=== PATIENT | female | born 1960 | race Caucasian/White ===

== ENCOUNTER 2019-08-06 10:32 | Outpatient (CLI) | payer BC, SELFPAY ==
--- NOTE | ~2019-08-06 | XR_ITS ---
EXAMINATION: XR ankle LT min 3V, XR foot LT min 3V, XR heel LT min 2V EXAM DATE: 08/06/2019 11:01 INDICATION: No known recent injury provided at this time. Pain of the left ankle, heel, foot. TECHNIQUE: Left foot dorsoplantar, lateral and oblique projections obtained and reviewed. Left ankle frontal, lateral and oblique projections obtained and reviewed. Frontal and lateral injections left calcaneus. Comparison is made to prior examination from 02/04/2013. FINDINGS: There is interval development of mild to moderate left first metatarsophalangeal joint prim fiorella osteoarthritis. Interval development of mild flattening of the third metatarsal head, consistent with avascular necrosis. There are no bony erosions identified. The left ankle mortise appears inta ct. The left calcaneus is unremarkable. No periosteal reaction or band of sclerosis to suggest suba cute stress fracture. There are no acute fractures or dislocations identified. There is no subcutane ous gas. The soft tissue is unremarkable. There are no radiopaque foreign bodies. IMPRESSION: 1. Mild to moderate left first MTP osteoarthritis. 2. Third metatarsal head mild chronic avascular necrosis. 3. Unremarkable ankle and calcaneus. Reviewed, dictated and finalized at location B. OMICS LECTURER IMPRESSION: 1. Mild to moderate left first MTP osteoarthritis. 2. Third metatarsal head mild chronic avascular necrosis. 3. Unremarkable ankle and calcaneus. IMPRESSION: 1. Mild to moderate left first MTP osteoarthritis. 2. Third metatarsal head mild chronic avascular necrosis. 3. Unremarkable ankle and calcaneus.
== END 2019-08-06 10:33 | disposition home or self-care (01) ==
PROVIDERS: PCP Internal Medicine; Visit Provider Internal Medicine
DX: M19.072 Primary osteoarthritis, left ankle and foot (principal)
CPT/HCPCS: 73610; 73630; 73650

== ENCOUNTER → 2021-01-12 10:29 | Outpatient (CLI) | payer BC, SELFPAY ==
--- NOTE | ~2021-01-12 | XR_ITS ---
EXAMINATION: XR wrist LT min 3V DATE: 01/12/2021 11:00 INDICATION: Rheumatoid arthritis presenting with anterior left wrist pain. TECHNIQUE: Posteroanterior, ulnar deviation, oblique, and lateral views of the left wrist were obtain ed. COMPARISON: none FINDINGS: Alignment is normal. No fracture. No fracture. Joint spaces are relatively preserved. No erosions. So ft tissues are unremarkable. IMPRESSION: 1. Negative left wrist radiographs. Reviewed, dictated and finalized at location A.
--- NOTE | ~2021-01-12 | XR_ITS ---
EXAMINATION: XR wrist RT min 3V DATE: 01/12/2021 11:00 INDICATION: Right wrist pain TECHNIQUE: Posteroanterior, ulnar deviation, oblique, and lateral views of the right wrist were obtai [place]. COMPARISON: 12/27/2017 FINDINGS: Alignment is normal. No fracture. Joint spaces are relatively preserved. Soft tissues are unremarkabl e. IMPRESSION: 1. Negative right wrist radiographs. Reviewed, dictated and finalized at location A.
--- NOTE | ~2021-01-12 | XR_ITS ---
EXAMINATION: XR knee RT min 4V DATE: 01/12/2021 11:00 INDICATION: Right knee pain TECHNIQUE: Weight bearing anteroposterior and [place], sunrise, and flexed lateral views of the aff ected knee were obtained COMPARISON: None. FINDINGS: Alignment is normal. No fracture. Joint spaces are normal. No erosions or osteophytosis. No right kn ee joint effusion. Soft tissues are unremarkable. IMPRESSION: 1. Normal right knee radiographs. Reviewed, dictated and finalized at location A.
== END ==
PROVIDERS: PCP Internal Medicine; Visit Provider Internal Medicine
DX: M25.531 Pain in right wrist (principal); M25.561 Pain in right knee; M25.562 Pain in left knee
CPT/HCPCS: 73110; 73564

== ENCOUNTER → 2021-06-22 12:42 | Outpatient (CLI) | payer BC, SELFPAY ==
--- NOTE | ~2021-06-22 | XR_ITS ---
EXAMINATION: XR foot LT 2V, XR foot RT 2V DATE: 06/22/2021 14:07 INDICATION: Rheumatoid arthritis TECHNIQUE: 1. Dorsoplantar and lateral views of the left foot were obtained. 2. Dorsoplantar and lateral views of the right foot were obtained. COMPARISON: Left foot radiograph dated 08/06/2019 and right foot radiographs dated 08/25/2017 FINDINGS: Alignment is normal at the bilateral feet. No acute fracture. Again seen is a chronic nonunited fract ure at the tip of the right lateral malleolus. Moderate osteoarthritis of the left first metatarsopha langeal joint. Mild osteoarthritis at the left first metatarsophalangeal joint and at multiple bilate ral tarsometatarsal and interphalangeal joints. Stable appearance of a chronically collapsed distal a rticular surface of the left third metatarsal which could represent sequela of chronic osteonecrosis (Freiberg's infraction). No erosions to suggest inflammatory arthritis such as rheumatoid. Soft tissu es are unremarkable at both feet. IMPRESSION: 1. 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 2. Chronic collapse of the distal articular surface of the head of the left third metatarsal neck as well as chronic osteonecrosis (Freiberg's infraction). 3. Polyarticular osteoarthritis in the bilateral mid and forefeet, moderate at the left first metatar sophalangeal joint and otherwise mild. Reviewed, dictated and finalized at location A. TER TECHNICIAN IMPRESSION: 1. Chronic nonunited avulsion fracture at the tip of the right lateral malleolu s. 2. Chronic collapse of the distal articular surface of the head of the left thi rd metatarsal neck as well as chronic osteonecrosis (Freiberg's infraction). 3. Polyarticular osteoarthritis in the bilateral mid and forefeet, moderate at the left first metatarsophalangeal joint and otherwise mild.
--- NOTE | ~2021-06-22 | XR_ITS ---
EXAMINATION: XR hand LT 2V, XR hand RT 2V DATE: 06/22/2021 14:07 INDICATION: Rheumatoid arthritis. TECHNIQUE: 1. Posteroanterior and lateral views of the right hand were obtained. 2. Posteroanterior and lateral views of the left hand were obtained along with a ball-catcher's view of both hands. COMPARISON: None. FINDINGS: Alignment is normal at both hands. No fracture. Joint spaces are relatively preserved throughout both hands. Soft tissues are unremarkable. No erosions or evident periarticular soft tissue swelling to s uggest an inflammatory arthritis. IMPRESSION: 1. Negative bilateral hand radiographs. Reviewed, dictated and finalized at location A. T PICKER MACHINE OPERATOR IMPRESSION: 1. Negative bilateral hand radiographs.
--- NOTE | ~2021-06-22 | XR_ITS ---
EXAMINATION: XR chest 2V DATE: 06/22/2021 14:07 INDICATION: Rheumatoid arthritis. TECHNIQUE: Frontal and lateral views of the chest were obtained. COMPARISON: Chest 2 views 07/25/2016 FINDINGS: A calcified left lung nodule and calcified left hilar lymph nodes are consistent with old g ranulomatous disease. There is mild atelectasis in right lower lung zone. No pleural effusion or pneu mothorax. The heart size is normal. There are prominent paracardial fat pads. IMPRESSION: 1. Mild atelectasis in right lower lung zone. Reviewed, dictated and finalized at location B. T PARTNER
== END ==
PROVIDERS: PCP Internal Medicine; Visit Provider Physician Assistant
DX: S82.61XK Displaced fracture of lateral malleolus of right fibula, subsequent encounter for closed fracture with nonunion (principal); M19.072 Primary osteoarthritis, left ankle and foot; M19.071 Primary osteoarthritis, right ankle and foot; J98.11 Atelectasis; M05.9 Rheumatoid arthritis with rheumatoid factor, unspecified
CPT/HCPCS: 71046; 73120; 73620